=== PATIENT | female | born 1995 | race African-American/Black ===

== ENCOUNTER → 2017-01-12 | Emergency (ER) | payer OTHER ==
[~2017-01-12] MED LIST: PREN29TA PO
--- NOTE | 2017-01-12 13:00 | PD ---
HPI Chief Complaint Cramping Date Seen: Jan 12, 2017 Travel History International Travel<30 Days: No Contact w/Intl Traveler<30Days: No Known Affected Area: No History of Present Illness HPI G1 at 20w 6d TIUP presents with c/o lower abdominal cramping today. Reports cramping resolved since arrival. Denies urinary/bowel problems. Good movement. Denies problems this . Recently moved to area- appt soon with [facility]. Physical Exam AFVSS BP 120/58 Narrative GENERAL: Well-nourished, well-developed patient. SKIN: Warm and dry. HEAD: Normocephalic and atraumatic. EYES: No scleral icterus. No injection or drainage. ENT: No nasal drainage noted. Mucous membranes pink. Airway patent. NECK: Supple, trachea midline. No JVD. CARDIOVASCULAR: Regular rate and rhythm without murmurs, gallops, or rubs. RESPIRATORY: Breath sounds equal bilaterally. No accessory muscle use. BREASTS: Bilateral exam showed no masses , no retractions, no nipple discharge. ABDOMEN/GI: Abdomen soft, non-tender, bowel sounds present, no rebound, no guarding Gravid to [-] weeks size Fundal Height: [-] GENITOURINARY: External Genitalia: intact and normal in appearance BUS glands: [-] Cervix: [-] Dilatation: [0] Effacement: [0] Station: [3] Presentation: [-] Membranes: [intact or ruptured] Uterine Contractions: [none] FHT's: Category: [-] Baseline: [Twin A 150s/Twin B 140s] Reactive: [-] Variability: [-] Decels: [none] EXTREMITIES: No cyanosis or edema. BACK: Nontender without obvious deformity. No CVA tenderness. NEUROLOGICAL: Awake and alert. Motor and sensory grossly within normal limits. Five out of 5 muscle strength in all muscle groups. Normal speech. Data Data Labs UA- moderate leukocytes MDM Interpretation(s) TIUP at 20w 6d, lower abdominal pain. Plan Will monitor. Hydration and other supportive therapies d/w patient. Keep scheduled appt. All questions answered. Disposition: 01 DISCHARGE HOME Condition: Tisha Gary MD Jan 12, 2017 13:00
== END | disposition home or self-care (01) ==
LOC: HOBED 12:52
DX: O47.02 False labor before 37 completed weeks of gestation, second trimester (principal); Z3A.21 21 weeks gestation of pregnancy
CPT/HCPCS: 99283

== ENCOUNTER 2017-02-25 17:16 | Emergency (ER) | payer OTHER ==
[~2017-02-25] VITALS: Ht 121.9 cm; Wt 88.9 kg
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
[2017-02-25 21:03] LABS: BLOOD, URINE NEG (NEG); COMMENT (UR) CULT NOT INDICATED; CULTURE IF INDICATED CULT NOT INDICATED; GLUCOSE,URINE NEG (NEG); KETONE, URINE NEG (NEG); NITRITE,URINE NEG (NEG); SQUAMOUS EPITHELIAL CELL URINE 1 /hpf (0-5); URINE COLOR LIGHT-YELLOW (YELLW/STRAW)
[2017-02-25] MEDS ORDERED: TERBUTALINE INJ 1 MG/ML AMP ONE (21:18)
== END 2017-02-25 23:28 | disposition home or self-care (01) ==
LOC: HOBED 17:16
DX: O30.002 Twin pregnancy, unspecified number of placenta and unspecified number of amniotic sacs, second trimester (principal); Z3A.27 27 weeks gestation of pregnancy; W03.XXXA Other fall on same level due to collision with another person, initial encounter
CPT/HCPCS: 81001; 96372; 99284; J3105

== ENCOUNTER → 2017-03-17 | Outpatient (CLI) | payer OTHER | LOC: HPND 09:52 | PROVIDERS: ATTEND Obstetrics & Gynecology | DX: O30.002 Twin pregnancy, unspecified number of placenta and unspecified number of amniotic sacs, second trimester (principal); O30.033 Twin pregnancy, monochorionic/diamniotic, third trimester | CPT/HCPCS: 76811; 76812; 76825; 76827; 93325 ==